=== PATIENT | female | born 1985 | race Caucasian/White ===

== ENCOUNTER 2019-01-19 22:55 | Emergency (ER) | payer OTHER, MEDICAID ==
[~2019-01-19] VITALS: Ht 170.2 cm; Wt 113.4 kg
[~2019-01-19 22:55] MED LIST: NORCO 5-325 TA1 EACH PO; PRENATAL GUMMI1 EACH PO; ZOFRAN ODT4 MG PO
[2019-01-19 23:33] VITALS: BP 130/61
[2019-01-19] MEDS ORDERED: LICE TREATMENT59 ML TOP (23:33)
[2019-01-19] MEDS ORDERED: SYNTHROID75 MCG PO (23:37)
== END 2019-01-20 | disposition home or self-care (01) ==
LOC: M.ERS 22:55
DX: S10.96XA Insect bite of unspecified part of neck, initial encounter (principal); S30.861A Insect bite (nonvenomous) of abdominal wall, initial encounter; S40.869A Insect bite (nonvenomous) of unspecified upper arm, initial encounter; S80.869A Insect bite (nonvenomous), unspecified lower leg, initial encounter; F17.210 Nicotine dependence, cigarettes, uncomplicated; Z88.0 Allergy status to penicillin; Z98.890 Other specified postprocedural states; W57.XXXA Bitten or stung by nonvenomous insect and other nonvenomous arthropods, initial encounter; Y93.89 Activity, other specified; Y92.89 Other specified places as the place of occurrence of the external cause; Y99.8 Other external cause status